=== PATIENT | female | born 1970 | race Two or more races ===

== ENCOUNTER 2018-04-05 20:37 | Emergency (ER) | payer SELFPAY ==
[~2018-04-05] VITALS: Ht 157.5 cm; Wt 104.3 kg
--- NOTE | 2018-04-05 21:10 | NUR ---
BIB SELF AA/OX4 C/C BILATERAL LEG SWELLING AND PAIN X 3 DAYS. AMBULATED INTO ER WITH STABLE GAIT. PEDAL PULSES PRESENT. NO S/S SOB. LUNG SOUNDS CLEAR IN ALL [place]ART[place]. PT DENIES ANY FURTHER MEDICAL COMPLAINTS. NAD. WILL CONTINUE TO MONITOR.
--- NOTE | 2018-04-05 22:19 | NUR ---
PT RESTING COMFORTABLE IN BED WITH FAMILY AT BEDSIDE. NAD. VSS. STABLE CONDITION.
[2018-04-05 22:24] LABS: BASOPHILS # (AUTO) 0.1 /CMM (0.0-0.2); BASOPHILS % (AUTO) 0.8 % (0.0-2.0); EOSINOPHILS % (AUTO) 0.7 % (0.0-6.0); HEMATOCRIT 38 % (33-45); LYMPHOCYTES % (AUTO) 15.1 % (20.0-44.0); MEAN CORPUSCULAR HGB CONC 34 g/dl (31.0-36.0); MEAN CORPUSCULAR VOLUME 88 fL (82-100); MONOCYTES # (AUTO) 0.9 /CMM (0.1-1.30); MONOCYTES % (AUTO) 6.6 % (2.0-12.0); NEUTROPHILS # (AUTO) 10.1 /CMM (1.8-8.9); NEUTROPHILS % (AUTO) 76.8 % (43.0-81.0); PLATELET COUNT (AUTO) 188 /CMM (150-450); RED BLOOD CELL COUNT(AUTO) 4.27 MIL/uL (4.0-5.2); WHITE BLOOD COUNT (AUTO) 13.1 K/uL (4.3-11.0)
[2018-04-05 22:32] LABS: CALCIUM, SERUM 8.1 mg/dL (8.5-10.1); CARBON DIOXIDE 26 mmol/L (21-32); CHLORIDE 105 mmol/L (98-107); CREATININE 0.9 mg/dL (0.6-1.3); GLUCOSE 118 mg/dL (74-106); POTASSIUM 3.2 mmol/L (3.5-5.1); SODIUM SERUM 143 mmol/L (136-145); UREA NITROGEN, BLOOD 18 mg/dL (7-18)
[2018-04-05 22:45] LABS: ALANINE AMINOTRANSFERASE 32 U/L (12-78); ALBUMIN 3.5 g/dL (3.4-5.0); ALKALINE PHOSPHATASE 82 U/L (46-116); ASPARTATE AMINOTRANSFERASE 8 U/L (15-37); B-TYPE NATRIURETIC PEPTIDE 95 PG/ML (0-125); BILIRUBIN,DIRECT 0.1 mg/dL (0.0-0.2); BILIRUBIN,TOTAL 0.3 mg/dL (0.2-1.0); TOTAL PROTEIN, SERUM 6.5 g/dL (6.4-8.2)
[2018-04-05] MEDS ORDERED: POTASSIUM CHLORIDE 20 MEQ TAB.PRT.SR PO ONE ×2 (23:29→23:30)
--- NOTE | 2018-04-05 23:46 | NUR ---
Patient discharged to home in stable condition. Written and verbal after care instructions given. Patient verbalizes understanding of instruction. AMBULATED WITH STABLE GAIT. SHERON. BASSEM.
[2018-04-05 23:48] VITALS: BP 152/87
== END 2018-04-05 23:48 | disposition home or self-care (01) ==
LOC: ER 20:58
DX: R60.0 Localized edema (principal); I87.8 Other specified disorders of veins; I10 Essential (primary) hypertension; Z98.890 Other specified postprocedural states
CPT/HCPCS: 36415; 80048-TC; 80076-TC; 83880; 84484-TC; 85025-TC; 85730-TC